=== PATIENT | female | born 1965 ===

== ENCOUNTER 2017-12-11 06:29 | Day surgery (SDC) | payer OTHER ==
[2017-12-11 07:02] VITALS: TEMP 97
[2017-12-11] MEDS ORDERED: Propofol 10 mg/ml Inj (20 ML) ONE (07:53)
[2017-12-11] MEDS ORDERED: Lactated Ringer's 1,000 ML IV ONE (08:17)
--- NOTE | 2017-12-11 08:30 | CP.SDSHP ---
Same Day Surgery H & P - History Proposed Procedure: screening colonoscopy Pre-Op Diagnosis: screening for colon cancer - Previous Medical/Surgical History Cardiac: Hypertension, Other (hyperlipidemia) Endocrine/Metabolic: Other (+AMA) Previous Surgical History: Lap Arleen. Tubal ligation - Allergies Allergies: Allergies No Known Allergies Allergy (Verified 12/11/17 06:47) - Physical Exam Vital Signs: Vital Signs 12/11/17 06:50 Temperature 97 F L Pulse Rate 76 Respiratory 19 Rate Blood Pressure 116/79 O2 Sat by Pulse 99 Oximetry Mental Status: Alert & Oriented x3 Neuro: WNL Heart: WNL Lungs: WNL GI: WNL - Impression Impression: screening for colon cancer Pt. Evaluated Today:Candidate for Anesthesia & Procedure: Yes - Date & Time Date: 12/11/17 Time: 08:30 Short Stay Discharge - Short Stay Discharge Admitting Diagnosis/Reason for Visit: ENCOUNTER FOR SCREENING Disposition: HOME/ ROUTINE
[2017-12-11 10:05] VITALS: BP 105/62; PULSE 70; RESP 18; O2SAT 99
== END 2017-12-11 10:00 | disposition home or self-care (01) ==
LOC: C.ENDO 06:29
PROVIDERS: ATTEND Internal Medicine Gastroenterology
DX: D12.5 Benign neoplasm of sigmoid colon (principal); K64.8 Other hemorrhoids
CPT/HCPCS: 45388; 88305; J7120